=== PATIENT | female | born 1990 ===

== ENCOUNTER 2018-11-19 01:52 | Emergency (ER) | payer OTHER ==
[2018-11-19 01:54] VITALS: BMI 28.3
[2018-11-19 02:06] VITALS: BP 149/76; PULSE 97; RESP 16; TEMP 98.6; O2SAT 97
--- NOTE | 2018-11-19 02:37 | ED PDOC ---
HPI: Female Pain Time Seen by Provider: 11/19/18 02:10 Chief Complaint (Nursing): Female Genitourinary Chief Complaint (Provider): Female Genitourinary History Per: Patient History/Exam Limitations: no limitations Onset/Duration Of Symptoms: Days (tonight) Additional Complaint(s): 28 year old 8 week via IVF () female with a history of hypothyroidism presents to the ed with bloody vaginal discharge tonight. Patient denies any subsequent vaginal bleeding, pain or any other symptoms. Patient reported to ED because she got nervous. She is currently on synthroid for hypothyroidism. no bleeding or pain now PMD: nonaffiliated, Dr. Avelar : 1 Para: 0 Past Medical History Reviewed: Historical Data, Nursing Documentation, Vital Signs Vital Signs: Last Vital Signs Temp 98.6 F 11/19/18 02:01 Pulse 97 H 11/19/18 02:01 Resp 16 11/19/18 02:01 BP 149/76 11/19/18 02:01 Pulse Ox 97 11/19/18 02:01 - Medical History PMH: Hypothyroidism - Family History Family History: States: Unknown Family Hx - Home Medications Home Medications: Ambulatory Orders Medication Instructions Recorded Levothyroxine [Synthroid] 50 mcg PO DAILY 11/23/17 - Allergies Allergies/Adverse Reactions: Allergies Allergy/AdvReac Type Severity Reaction Status Date / Time No Known Allergies Allergy Verified 07/23/15 22:34 Review of Systems ROS Statement: Except As Marked, All Systems Reviewed And Found Negative Genitourinary Female: Positive for: Vaginal Discharge. Negative for: Vaginal Bleeding Physical Exam - Reviewed Nursing Documentation Reviewed: Yes Vital Signs Reviewed: Yes - Physical Exam Appears: Positive for: Non-toxic, No Acute Distress Head Exam: Positive for: ATRAUMATIC, NORMOCEPHALIC Skin: Positive for: Normal Color, Warm, Dry Eye Exam: Positive for: Normal appearance, EOMI, PERRL Cardiovascular/Chest: Positive for: Regular Rate, Rhythm Respiratory: Positive for: Normal Breath Sounds. Negative for: Respiratory Distress Gastrointestinal/Abdominal: Positive for: Normal Exam, Bowel Sounds, Soft. Negative for: Tenderness Extremity: Positive for: Normal ROM (upper and lower). Negative for: Pedal Edema, Deformity Neurological/Psych: Positive for: Awake, Alert, Oriented (x3) - ECG O2 Sat by Pulse Oximetry: 97 (RA) Pulse Ox Interpretation: Normal Medical Decision Making Medical Decision Making: Time: 219 Plan:bleeding in has completley resolved. one episode of mucous w blood. abdomen non tender. will rule out threatened --type and screen --Beta-HCG --CMP --CBC --OB US Time: 351 OB US: First trimester obstetric ultrasound. Indication: Brownish discharge. Technique: Real-time ultrasound images were obtained. Findings: Single, live intrauterine gestation. Estimated gestational age 8 weeks and 4 days. heart rate 162 beats per minute. Normal ovaries. Impression: Single, live intrauterine gestation. No abnormality is seen. Time: 445 --Patient refusing bloodwork, and is Rh+ as per pt. Urine is negative for infection. Patient is medically stable for discharge home. Scribe Attestation: Documented by Amanda Alfonso, acting as a scribe for Tae Rhodes MD. Provider Scribe Attestation: All medical record entries made by the Scribe were at my direction and p ersonally dictated by me. I have reviewed the chart and agree that the record accurately reflects my personal performance of the history, physical exam, medical decision making, and the department course for this patient. I have also personally directed, reviewed, and agree with the discharge instructions and disposition. 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
--- NOTE | 2018-11-19 16:26 | US ---
Date of service: 11/19/2018 PROCEDURE: OB Pelvic Ultrasound HISTORY: bloody (brownish) discharge LMP: 09/14/2018 indicating gestation of 9 weeks 3 days. COMPARISON: None available. FINDINGS: UTERUS: Gestational sac: Single intrauterine gestation with yolk sac and pole as well as the and membrane identified. Mean gestational sac diameter 4.68 cm. Corresponds to 10 week 2 day gestation.. Heart rate: 162 bpm. age (Ultrasound estimated): 8 weeks 4 days by CRL mean measurement. Sophie-gestational hemorrhage: None. Date of delivery (Ultrasound estimated) : 06/21/2019. Uterus measures 9.2 x 6.0 x 8.4 cm. No myometrial pathology appreciable. CERVIX: Measures 4.2 cm. Long and closed. No cervical abnormality seen. RIGHT OVARY: Measures 3.5 x 2.6 x 1.7 cm. No mass lesion. Normal flow. LEFT OVARY: Measures 3.0 x 2.3 x 2.6 cm. No solid mass. Normal flow. FREE FLUID: None. OTHER FINDINGS: None. IMPRESSION: Single viable intrauterine gestation is identified with sonographic ultrasonic age of 8 weeks 4 days, concordant with LMP derived dates of 9 weeks 3 days. Positive cardiac activity as per above. No decidual hemorrhage appreciated at this time. Clinical follow-up advised. Concordant preliminary report from [facility], 11/19/2018 3:52 a.m..
== END 2018-11-19 04:59 | disposition home or self-care (01) ==
LOC: H.ER 01:52
DX: O20.0 Threatened abortion (principal); E03.9 Hypothyroidism, unspecified; O99.281 Endocrine, nutritional and metabolic diseases complicating pregnancy, first trimester; Z3A.09 9 weeks gestation of pregnancy